=== PATIENT | female | born 1960 | race African-American/Black ===

== ENCOUNTER 2018-03-10 06:10 | Inpatient (IN) ==
--- NOTE | 2018-03-10 07:08 | Diag Imaging Result Doc PS360 ---
CT HEAD W/O CONTRAST - 03/10/2018 INDICATION: right side weakness and tingling COMPARISON: 08/27/2010 FINDINGS: The ventricles and sulci are normal in size and contour. No intracranial mass or hemorrhage. The skull is intact. The sinuses mastoids and middle ears are clear. IMPRESSION: Negative exam. This exam was performed using automated exposure control, adjustment of mA or kV according to patient size, and/or use of iterative reconstruction technique Electronically signed by Silvio Vázquez 03/10/2018 7:05 AM
[2018-03-10 07:17] LABS: BASO# 0.02 X1000 (0.0-0.2); BASO% 0.4 % (0.0-0.8); EOS# 0.06 X1000 (0.0-0.7); EOS% 1.2 % (0.0-10.0); HEMOGLOBIN 12.9 g/dL (12.0-16.0); IMM GRAN# 0.03 X1000 (0.0-0.04); IMM GRAN% 0.6 % (0.0-0.5); LYMPH# 2.39 X1000 (1.2-3.4); LYMPH% 46.1 % (20.5-51.1); MCH 28.2 PG (27-31); MCHC 34.9 g/dL (33-37); MCV 80.8 FL (81-99); MONO# 0.29 X1000 (0.11-0.59); MONO% 5.6 % (1.7-9.3); MPV 9.2 FL (7.4-10.4); NEUT# 2.39 X1000 (1.4-6.5); NEUT% 46.1 % (42.2-75.2); PLT 295 X1000 (130-400); RBC 4.58 XMIL (4.2-5.4); WBC 5.18 X1000 (4.8-10.8)
[2018-03-10 07:24] LABS: INR 0.91
[2018-03-10 07:25] LABS: PTT 27.8 Seconds (22.3-41.8)
--- NOTE | 2018-03-10 07:38 | PROVIDER DOCUMENTATION ---
HPI-Neurological Disorder - General Chief Complaint: Numbness Stated Complaint: RT HAND,FOOT,FACIAL NUMBNESS Time Seen by Provider: 03/10/18 07:16 Source: patient, old records Allergies/Adverse Reactions: Patient Allergies Allergy/AdvReac Type Severity Reaction Status Date / Time amoxicillin [Amoxicillin] Allergy HIVES Verified 03/10/18 06:43 nitrofurantoin Allergy HIVES Verified 03/10/18 06:43 [From Macrobid] nitrofurantoin Allergy HIVES Verified 03/10/18 06:43 macrocrystalline * [From Macrobid] Home Medications: Home Medication List Medication Instructions Recorded Confirmed Last Taken Type Metformin [Glucophage] 1,000 mg PO BID 12/31/11 03/10/18 10/25/17 20:00 History Estradiol 0.5 mg PO DAILY 11/13/13 03/10/18 10/25/17 14:00 History ATORVAstatin [Lipitor] 40 mg PO QHS 10/11/14 03/10/18 10/25/17 20:00 History Hydrocodone/Acetaminophen [[place] 1 each PO Q4-6H PRN PRN #14 tablet 11/20/1610/24/17 20:00 Rx 7.5-325 Tablet] Alprazolam [Xanax Xr] 0.5 mg PO PRN PRN 10/23/17 03/10/18 10/23/17 20:00 History Furosemide 20 mg PO DAILY 10/23/17 03/10/18 10/23/17 05:00 History Lisinopril 20 mg PO DAILY 10/23/17 03/10/18 10/25/17 06:00 History Omeprazole 40 mg PO DAILY 10/23/17 03/10/18 10/25/17 08:00 History Gabapentin [Neurontin] 100 mg PO TID PRN #60 cap 12/31/17 03/10/18 Unknown Rx Exenatide Microspheres [Bydureon 2 mg IM Q7D 03/10/18 03/10/18 03/03/18 History Bcise] - History of Present Illness-Neuro Nature of Presenting Problem: patient was assigned to me at shift change: she had presented within the prior hour with a hx that she awakened @ ~ 2:30a (nocturia) and realized she had ( paresthesias) of the right face, arm, and leg. She didn't immediately perceive weakness but felt "off balance" while walking to the BR. she eventually presented here with this hx after 6a. based on the duration of current sx known , with uncertain time of onset, it was felt she was not a tPA candidate upon her arrival. She has no previous hx of CVA, ACS/CAD, does have a hx of HBP/DM/ lipids. Her brain CT has been reported as 'negative.' Review of Systems - Adult - REVIEW OF SYSTEMS - ADULT Constitutional: reports: no symptoms reported Eyes: reports: no symptoms reported Ears, Nose, Mouth & Throat: reports: no symptoms reported Cardiovascular: reports: no symptoms reported Respiratory: reports: no symptoms reported Gastrointestinal: reports: no symptoms reported Genitourinary: reports: no symptoms reported Musculoskeletal: reports: no symptoms reported Integumentary: reports: no symptoms reported Neurological: reports: see HPI, numbness, paresthesia Psychiatric: reports: no symptoms reported Endocrine: reports: no symptoms reported Hematologic/Lymphatic: reports: no symptoms reported Allergic/Immunologic: reports: no symptoms reported All Other Systems: Reviewed and Negative Past History - Adult - PAST MEDICAL HISTORY-ADULT Review of Records: reports: Old Records Reviewed Major Childhood Illnesses: reports: denies history Cardiovascular: reports: HTN, hyperlipidemia Respiratory: reports: denies history Gastrointestinal: reports: denies history Obstetrical/Gynecological: reports: denies history Genitourinary: reports: denies history Musculoskeletal: reports: chronic pain (back) Neurological: reports: denies history Psychiatric: reports: depression Endocrine/Immune: reports: Diabetes Other Conditions: reports: denies history - PRIOR SURGERIES/PROCEDURES Surgical/Procedure History: reports: orthopedic (extremity) (Right knee) - IMMUNIZATION STATUS Childhood Immunizations: See Nurse Assessment Flu Vaccine: See Nurse Assessment - FAMILY HISTORY Family History: reviewed, not pertinent Physical Exam- Neurological - Physical Exam-Neuro Initial Vital Signs Reviewed: Yes General Appearance: appears well, alert, no apparent distress Eye Exam: bilateral eye: normal inspection, PERRL, EOMI HENMT: normocephalic/atraumatic, moist mucous membranes Head Injury: no evidence of injury Neck: full range of motion, supple. negative: Brudzinski's sign Respiratory: lungs clear, normal breath sounds Cardiovascular: normal peripheral pulses, regular rate, rhythm Abdominal Exam: normal bowel sounds, non tender, soft Peripheral Pulses: radial (R): 3+, radial (L): 3+ Extremity: normal range of motion, non-tender pier runner Exam: normal hearing, normal speech, PERRL Motor/Sensory: weak motor strength RUE, weak motor strength RLE (right hemiparesis @ 4/5 w/o obvious facial droop.) Neurologic: other (visual mcintyre full @ confrontation, no aphasia. no neglect. no definite Babinski on right.) Integumentary: normal color, normal turgor, warm/dry. negative: rash Psych/Mental Status: normal mood/affect, normal thought content - Glascow Coma Scale Best Eye Response: (4) open spontaneously Best Verbal Response: (5) oriented Best Motor Response: (6) obeys commands Total Glascow Score: 15 Progress - PLAN OF CARE/RESULTS Progress/Plan/Lab Results: Vital Signs - 8 hr 03/10/18 06:17 03/10/18 07:03 03/10/18 07:31 Temperature 98.2 F Pulse Rate 77 76 80 Respiratory Rate 15 17 13 Blood Pressure 155/94 150/96 146/118 O2 Sat by Pulse Oximetry 100 97 95 03/10/18 08:01 03/10/18 08:31 03/10/18 10:01 Temperature Pulse Rate 73 84 69 Respiratory Rate 14 17 20 Blood Pressure 147/85 134/100 148/97 O2 Sat by Pulse Oximetry 97 96 97 Bedside Urine ED: Urine Bedside Start: 03/10/18 06:26 Freq: ORDERED Status: Active Protocol: Activity Type Activity Date Activity User E-Sign Co-Sign Detail Recorded Client Recorded Date Recorded By Document 03/10/18 06:27 [id number] 03/10/18 06:27 [id number] 03/10/18 06:27 Point of Care [Bedside Point of Care] -Lot # [id number] - Results Negative -Control Line Visible? Yes Laboratory Results - last 24 hr 03/10/18 03/10/18 03/10/18 06:54 06:54 06:54 WBC 5.18 RBC 4.58 Hgb 12.9 Hct 37.0 MCV 80.8 L MCH 28.2 MCHC 34.9 RDW Std Deviation 14.0 Plt Count 295 MPV 9.2 Immature Gran % (Auto) 0.6 H Neut % (Auto) 46.1 Lymph % (Auto) 46.1 [place] % (Auto) 5.6 Eos % (Auto) 1.2 Baso % (Auto) 0.4 Immature Gran # (Auto) 0.03 Neut # (Auto) 2.39 Lymph # (Auto) 2.39 [place] # (Auto) 0.29 Eos # (Auto) 0.06 Baso # (Auto) 0.02 PT 13.0 INR 0.91 PTT (Actin FS) 27.8 Sodium 143 Potassium 4.5 Chloride 104 Carbon Dioxide 25 Anion Gap 14 BUN 10 Creatinine 0.6 Estimated GFR/1.73 m2 > 60 BUN/Creatinine Ratio 17 Glucose 146 H Calculated Osmolality 287 Calcium 9.3 Total Bilirubin 0.25 AST 10 ALT 8 L Alkaline Phosphatase 57 Troponin T Total Protein 6.5 Albumin 4.0 Globulin 2.5 Albumin/Globulin Ratio 1.6 03/10/18 06:54 WBC RBC Hgb Hct MCV MCH MCHC RDW Std Deviation Plt Count MPV Immature Gran % (Auto) Neut % (Auto) Lymph % (Auto) [place] % (Auto) Eos % (Auto) Baso % (Auto) Immature Gran # (Auto) Neut # (Auto) Lymph # (Auto) [place] # (Auto) Eos # (Auto) Baso # (Auto) PT INR PTT (Actin FS) Sodium Potassium Chloride Carbon Dioxide Anion Gap BUN Creatinine Estimated GFR/1.73 m2 BUN/Creatinine Ratio Glucose Calculated Osmolality Calcium Total Bilirubin AST ALT Alkaline Phosphatase Troponin T < 0.010 Total Protein Albumin Globulin Albumin/Globulin Ratio Orders Category Date Time Status Cardiac Monitoring DIRECTED Care 03/10/18 07:04 Active ED: Urine Bedside ORDERED Care 03/10/18 06:26 Active Misc. NRSG Communication Order DIRECTED Care 03/10/18 07:04 Active Saline Loc NOW Care 03/10/18 07:04 Active CHEST-PORTABLE [RAD] Stat Exams 03/10/18 07:[address] HEAD W/O CONTRAST [CT] Stat Exams 03/10/18 06:20 Completed CBC WITH ELECTRONIC DIFF [HEME] Stat Lab 03/10/18 06:54 Completed COMPREHENSIVE METABOLIC PANEL [CHEM] Stat Lab 03/10/18 06:54 Completed PROTIME WITH INR [COAG] Stat Lab 03/10/18 06:54 Completed PTT [COAG] Stat Lab 03/10/18 06:54 Completed TROPONIN T Stat Lab 03/10/18 06:54 Completed EKG [EKG] Stat Ther 03/10/18 06:39 Ordered repeat exam unchanged (no progression of weakness or other stroke signs) @ 10: 00a; diagnostics wnl: will consult w/ her PCP Dr. Eder Cai for admission. disc'd w/ Dr. Cai, he will see in ED Result Diagrams: 03/10/18 06:54 03/10/18 06:54 Departure - Departure Date of Disposition Decision: 03/10/18 Time of Disposition Decision: 10:50 DIAGNOSIS: Acute CVA (cerebrovascular accident) Disposition: ADMITTED INPATIENT 09 Certified Medical Emergency: Emergent Condition: Stable Referrals and Follow-Ups: Jules Cai MD [Primary Care Provider] - - Critical Care Note This patient required my direct & personal management of CC.: No Attestation - Physician/ JOHN Attestation The physician spent face to face time with patient:: Yes Advanced Practice Provider documentation review:: Supervising physician onsite and consulted in the evaluation and care of this patient. The physician did have a face to face encounter with the patient. - NIH Stroke Scale Level of Consciousness: 0-Alert LOC Questions (ask month and age): 0-Answers Both Correctly LOC Commands (ask to open & close eyes;make a fist, let go): 0-Obeys Both Correctly Best Gaze (horizontal eye movement): 0-Normal Visual (use finger movement, counting or visual threat): 0-No Visual Loss Facial Palsy (show teeth or raise eyebrows & close eyes tght: 0-Symmetrical Movement Motor Function-left arm: 0-Normal Motor Function-right arm: 1-Drift Motor Function-left le-Normal Motor Function-right le-Drift Sensory(pin prick to face,arms,trunk,legs-compare side/side): 1-Mild to Moderate Decrease in Sensation Best Language(name item/read sentence.Ex-Down to Earth): 0-No Aphasia Dysarthria(Pt read words or say words Ex.Mama,Tip-Top,Thanks: 0-Normal Articulation Extinction and Inattention: 0-Normal NIH Total Score: 2 Modified [place] Score Criteria: 1-no significant disability despite symptoms
[2018-03-10 07:41] LABS: AGAP 14; ALB/GLOB RATIO 1.6; ALKALINE PHOSPHATASE 57 U/L (32-104); BUN 10 mg/dL (8-22); CALCIUM 9.3 mg/dL (8.8-10.2); CHLORIDE 104 mmol/L (98-107); COSMO 287; CREATININE 0.6 mg/dL (0.5-0.9); ESTIMATED GFR > 60; GLUCOSE 146 mg/dL (70-104); GOT 10 U/L (10-30); GPT 8 U/L (10-36); POTASSIUM 4.5 mmol/L (3.5-5.1); SODIUM 143 mmol/L (136-145); TCO2 25 mmol/L (25-35); TOTAL BILIRUBIN 0.25 mg/dL (0.20-1.00); TOTAL PROTEIN 6.5 g/dL (6.3-8.3)
--- NOTE | 2018-03-10 08:53 | Diag Imaging Result Doc PS360 ---
CHEST-PORTABLE - 03/10/2018 INDICATION: stroke like symptoms COMPARISON: 11/20/2016 FINDINGS: There is cardiomegaly. Pulmonary vascularity is top normal. No infiltrates or edema. No pneumothorax or pleural effusion. IMPRESSION: Cardiomegaly. Electronically signed by Silvio Vázquez 03/10/2018 8:50 AM
[2018-03-10] MEDS ORDERED: NORCO-7.5 PO PRN (11:16)
[2018-03-10] MEDS ORDERED: XANAX XR PO PRN (11:16)
[2018-03-10] MEDS ORDERED: LASIX PO PRN (11:16)
[2018-03-10] MEDS ORDERED: NEURONTIN PO PRN (11:16)
[2018-03-10] MEDS ORDERED: NON-FORMULARY MED (Exenatide Microspheres [Bydureon Bcise] 2 MG) IM SCH (11:30)
[2018-03-10] MEDS ORDERED: ASPIRIN PO ONE (11:30)
[2018-03-10] MEDS ORDERED: NON-FORMULARY MED (Exenatide Microspheres [Bydureon Bcise] 2 MG) SUBQ SCH (15:23)
[2018-03-10] MEDS ORDERED: EXENATIDE MICROSPHERES SUBQ SCH (15:27)
--- NOTE | 2018-03-10 15:27 | HISTORY AND PHYSICAL ---
CHIEF COMPLAINT: Right-sided weakness and numbness. PRESENT ILLNESS: This is the first recent [facility] admission for this 57-year-old black female, who awoke this morning at 1 a.m. with some right facial weakness. She got up to go to the bathroom at 2 a.m. and continued to have the weakness in her right face and right side, including both extremities. She was able to walk and had no difficulty in walking to the bathroom and going back to bed. She awoke about 5:30 this morning, continued to have the paresthesias and presented to the emergency room. CT scan of her head was normal with no bleed or mass. Chest x-ray showed cardiomegaly. Discussion was made with the emergency room physician and decision made to admit her to the hospital to rule out stroke. PAST MEDICAL HISTORY: Hospitalized for reduction mammaplasty by Dr. Worrell 10/26/2017. This was an outpatient procedure. She had a compression fracture of her T-spine in 2016. PRESENT MEDICATIONS: Lipitor 40 mg 1 at bedtime, alprazolam 0.5 mg 1 daily, estradiol 0.5 mg 1 daily, Lasix 20 mg 1 daily, Neurontin 100 mg t.i.d. p.r.n., [place] 7.5/325 1 daily, lisinopril 20 mg 1 daily, metformin 1000 mg b.i.d., omeprazole 40 mg 1 daily, and Bydureon 2 mg IM every seven days. ALLERGIES: Amoxicillin, nitrofurantoin. REVIEW OF SYSTEMS: No previous similar right facial paresthesias or extremity weakness. There is history of hypertension and diabetes. SOCIAL HISTORY: and lives with her . She denies smoking or alcohol usage. PHYSICAL EXAMINATION: VITAL SIGNS: Temperature 98 degrees, heart rate 76, respirations 20, blood pressure 148/97, O2 saturation on room air 97%. NEUROLOGIC: Pupils equal, round, and reactive to light. There is no definite facial weakness. She does have paresthesias of the right side of her face. She has 3/5 out patient therapist strength on the right hand compared to 5/5 on the left. She is able to ambulate. Right foot pulse is weak, but palpable. Right foot is warm. RECTAL AND GENITALIA: Deferred. IMPRESSION: 1. Paresthesias right side of her face. 2. Weakness of her right arm and leg, rule out stroke. 3. Hypertension. 4. Diabetes. 5. Obesity. 6. Hypercholesterolemia. PLAN: Admit for further evaluation and treatment including carotid ultrasound and echocardiogram. Chest x-ray showed cardiomegaly. Present medication is continued. Aspirin 81 mg daily is added. cc: Jules Cai MD
[2018-03-10] MEDS: GLUCOPHAGE PO SCH (16:19)
[2018-03-10] MEDS ORDERED: LIPITOR PO SCH (21:00)
[2018-03-11] MEDS: PRILOSEC PO SCH ×2 (05:56→07:11)
[2018-03-11 07:58] VITALS: BP 145/82
[2018-03-11] MEDS ORDERED: PRINIVIL PO SCH (09:00)
[2018-03-11] MEDS ORDERED: ESTRACE PO SCH (09:00)
[2018-03-11] MEDS ORDERED: XARELTO PO SCH (09:00)
[2018-03-11] MEDS: GLUCOPHAGE PO SCH (09:33)
--- NOTE | 2018-03-11 13:07 | ECHO REPORT ---
ORDER DATE: 03/10/2018 ECHOCARDIOGRAPHIC MEASUREMENTS: 1. Interventricular septum 0.8. 2. Left ventricular posterior wall 0.8. 3. Diastolic diameter 5. 4. Left atrium 3.1. 5. Aorta 2.6. SUMMARY OF 2-DIMENSIONAL IMAGIN. Technically suboptimal study. Optison was used to assess left ventricular systolic function. Normal left ventricular cavity size. Estimated ejection fraction of 60%. 2. Aortic valve leaflets are trileaflet. 3. Mitral valve was normal. Pulmonic valve was normal. Tricuspid valve was normal. 4. There is trace to mild mitral regurgitation. Mild tricuspid regurgitation. Peak velocity across the tricuspid valve less than 2 m/sec. 5. There is no aortic stenosis or regurgitation. There is trace pulmonary regurgitation. 6. There is no pericardial effusion or obvious intracardiac mass or thrombus seen. cc: MD Jules Ortega MD
--- NOTE | 2018-03-12 03:51 | DISCHARGE SUMMARY ---
ADMISSION DATE: 03/09/2018 DISCHARGE DATE: 03/11/2018 FINAL DIAGNOSES: 1. Transient ischemic attack. 2. Neuralgia of the right upper lip. 3. Diabetes. 4. Hypertension. 5. Hypercholesterolemia. HISTORY: This is the first recent [facility] admission for this 57-year-old black female who presented to the emergency room with several-hour history of right-sided weakness and right facial numbness. CT scan of her head was unremarkable with no lesions or mass. INITIAL LABORATORY: Hemoglobin 12.9, hematocrit 37, white blood count 5200 sodium 143, potassium 4.5, BUN 10, creatinine 0.6, glucose 146. Liver functions normal. Troponin T less than 0.01. HOSPITAL COURSE: She was continued on usual medications and aspirin 81 mg was added daily. This morning, she has no weakness of her right arm or leg and has been ambulatory. She continues to have mild numbness of her right upper lip, which has improved. Because of increased risk factors for stroke, she is started on Xarelto 2.5 mg b.i.d. and aspirin 81 mg daily. She will be seen in the office on Monday for follow-up. If right-sided weakness returns or numbness in her face becomes worse, she is to notify the office. cc: Jules Cai MD
--- NOTE | 2018-03-13 08:16 | EKG Report ---
Test Performed on : 03/10/2018 06:42:19 AM Test Reason : weakness Blood Pressure : / mmHG Vent. Rate : 083 BPM Atrial Rate : 083 BPM P-R Int : 182 ms QRS Dur : 084 ms QT Int : 412 ms P-R-T Axes : 060 -18 016 degrees QTc Int : 484 ms Normal sinus rhythm. Possible Left atrial enlargement Low voltage QRS Nonspecific T wave abnormality Prolonged QT Abnormal ECG When compared with ECG of 23-OCT-2017 14:52, No significant change was found Unconfirmed Result
== END 2018-03-11 10:22 | disposition home or self-care (01) | DRG 69 ==
LOC: ED 06:10 → INTOOBSV 12:06 → OBSVTOIN 12:06 → 4N 12:06
PROVIDERS: ADMIT Family Medicine; ATTEND Family Medicine
CPT/HCPCS: 70450; 71010; 71045; 80053; 81025; 82948; 84484; 85025; 85610; 85730; 93005; 93306; 93880; 96372; 99285; A9270; C8929; G0378; Q9957; XXXXX